=== PATIENT | female | born 1995 | race African-American/Black ===

== ENCOUNTER 2019-01-19 09:24 | Emergency (ER) | payer MEDICAID ==
[~2019-01-19] VITALS: Ht 170.2 cm; Wt 59.0 kg
--- NOTE | 2019-01-19 09:30 | NUR ---
ED Nurse Note: Patient brought in by ambulance from streets. per ems, patient was running around the street and stating that "someone wants to kill her." patient is alert awake to her name, with delusional thoughts that some one is trying to kill her. patient is not cooperative, not compliant.
[2019-01-19] MEDS ORDERED: UNOBMED (09:31)
--- NOTE | 2019-01-19 09:43 | Emergency Room Report ---
History of Present Illness General Chief Complaint: Behavioral Complaint Source: Patient, EMS, [employer] Enforcement (Ishan Carreno MD) Present Illness HPI Patient brought in by [employer] and EMS for psychotic behavior. She's paranoid. She was picked up an intersection running between traffic. She will not answer whether she's been doing drugs at this time. She will not answer if pain, nausea, headache. Unknown LNMP. (Ishan Carreno MD) Allergies: Coded Allergies: No Known Allergies (Unverified , 01/19/19) Patient History Limited by: medical condition Past Medical History: see triage record Social History: Reports: drug use Social History Narrative from [place] : 2 Reviewed Nursing Documentation: PMH: Agreed; PSxH: Agreed (Ishan Carreno MD) Nursing Documentation-PMH Past Medical History: No Stated History (Ishan Carreno MD) Review of Systems All Other Systems: limited (Ishan Carreno MD) Physical Exam Vital Signs Date Time Temp Pulse Resp B/P (MAP) Pulse Ox O2 Delivery O2 Flow Rate FiO2 01/19/19 09:22 97.3 97 18 119/75 98 Room Air Sp02 EP Interpretation: reviewed, normal General Appearance: moderate distress Head: normocephalic, atraumatic Eyes: bilateral eye PERRL, bilateral eye EOMI, bilateral eye Scleral Injection ENT: dry mucus membranes Neck: supple Respiratory: lungs clear, normal breath sounds Cardiovascular #1: regular rate, rhythm Cardiovascular #2: 2+ radial (R) Gastrointestinal: normal inspection, non tender, no mass, non-distended, decreased bowel sounds Genitourinary: no CVA tenderness Musculoskeletal: back normal, normal range of motion, no calf tenderness Neurologic: alert, motor strength/tone normal, DTRs symmetric, sensory intact Psychiatric: anxious, other - paranoid, agitated Skin: normal inspection, warm/dry (Ishan Carreno MD) Medical Decision Making Medical: Substance Abuse Behavioral: Anxiety, Other Reaction to Intervention: No change Restraint Reassesment I, Ishan Carreno MD, have personally evaluated this patient. Laboratory tests have been reviewed and addressed accordingly. The patient is deemed to present a danger to themselves and/or others. This is based on the exam, history ( provided by patient, EMS/[employer]) and observed or reported behavior. Attempts for non-invasive measures have been considered and/or attempted, however, have been futile. It is in the best interest of the nursing staff, the patient, and others involved in this patient's care that behavioral restraints be applied. Patient evaluation reveals the following: paranoid and agitated not responding to calming attempts or de-escalation attempts. (Ishan Carreno MD) Diagnostic Impression: Primary Impression: Substance abuse Additional Impressions: Psychosis Qualified Codes: F29 - Unspecified psychosis not due to a substance or known physiological condition Transient hypertension Rhabdomyolysis Qualified Codes: M62.82 - Rhabdomyolysis ER Course Patient presents with agitation and psychosis. Differential includes drug abuse , electrolyte imbalance, exacerbation of schizoaffective and anxiety amongst others. Evaluation will be with EKG, labs including tests and drug screen. Sedation is been ordered as well as a hard restraints. Transient decrease in O2 sat - decreased responsiveness. NS bolus given. BP better. Sedated and restraints coming off. Labs with leukocytosis, elevated CK. + cocaine and amphetamine Still delusional and paranoid. Continued observation. Will repeat labs. Sign out to Dr. Rivera. Laboratory Tests Test 01/19/19 10:40 White Blood Count 17.9 K/UL (4.8-10.8) H Red Blood Count 3.85 M/UL (4.20-5.40) L Hemoglobin 12.4 G/DL (12.0-16.0) Hematocrit 36.7 % (37.0-47.0) L Mean Corpuscular Volume 95 FL (80-99) Mean Corpuscular Hemoglobin 32.1 PG (27.0-31.0) H Mean Corpuscular Hemoglobin Concent 33.7 G/DL (32.0-36.0) Red Cell Distribution Width 11.1 % (11.6-14.8) L Platelet Count 305 K/UL (150-450) Mean Platelet Volume 6.8 FL (6.5-10.1) Neutrophils (%) (Auto) % (45.0-75.0) Lymphocytes (%) (Auto) % (20.0-45.0) Monocytes (%) (Auto) % (1.0-10.0) Eosinophils (%) (Auto) % (0.0-3.0) Basophils (%) (Auto) % (0.0-2.0) Differential Total Cells Counted 100 Neutrophils % (Manual) 87 % (45-75) H Lymphocytes % (Manual) 6 % (20-45) L Monocytes % (Manual) 4 % (1-10) Eosinophils % (Manual) 0 % (0-3) Basophils % (Manual) 0 % (0-2) Band Neutrophils 3 % (0-8) Platelet Estimate Adequate Platelet Morphology Normal Red Blood Cell Morphology Normal Urine HCG, Qualitative Negative (NEGATIVE) Sodium Level 136 MMOL/L (136-145) Potassium Level 3.4 MMOL/L (3.5-5.1) L Chloride Level 100 MMOL/L (98-107) Carbon Dioxide Level 20 MMOL/L (21-32) L Anion Gap 17 mmol/L (5-15) H Blood Urea Nitrogen 14 mg/dL (7-18) Creatinine 1.3 MG/DL (0.55-1.30) Estimate Glomerular Filtration Rate > 60 mL/min (>60) Glucose Level 54 MG/DL (74-106) L Calcium Level 9.2 MG/DL (8.5-10.1) Total Bilirubin 1.1 MG/DL (0.2-1.0) H Direct Bilirubin 0.3 MG/DL (0.0-0.3) Aspartate Amino Transferase (AST) 37 U/L (15-37) Alanine Aminotransferase (ALT) 15 U/L (12-78) Alkaline Phosphatase 64 U/L (46-116) Total Creatine Kinase 1164 U/L (26-308) H Total Protein 8.5 G/DL (6.4-8.2) H Albumin 4.2 G/DL (3.4-5.0) Globulin 4.3 g/dL Albumin/Globulin Ratio 1.0 (1.0-2.7) Salicylates Level 2.0 ug/mL (2.8-20) L Urine Opiates Screen Negative (NEGATIVE) Acetaminophen Level < 2 MCG/ML (10-30) L Urine Barbiturates Screen Negative (NEGATIVE) Phencyclidine (PCP) Screen Negative (NEGATIVE) Urine Amphetamines Screen Positive (NEGATIVE) H Urine Benzodiazepines Screen Negative (NEGATIVE) Urine Cocaine Screen Positive (NEGATIVE) H Urine Marijuana (THC) Screen Positive (NEGATIVE) H Serum Alcohol < 3 mg/dL (Ishan Carreno MD) ER Course Please refer to the initial note for the history exam and presentation I was following on the patient's repeat blood work Patient's total CK appears to be worsening Patient is concerning for developing rhabdomyolysis Further hydration is initiated and patient requires further inpatient care Please note that the patient at the time of admission now refusing admission Patient's significant other is also here reports that the patient does not want to stay in the hospital I discussed with him the findings and worsening rhabdomyolysis The concern for worsening kidney function and renal failure Patient has full decision-making capacity Patient's partner here also agreeable with the patient And they have signed AGAINST MEDICAL ADVICE Labs Test 01/19/19 10:40 01/19/19 16:00 White Blood Count 17.9 K/UL (4.8-10.8) 16.4 K/UL (4.8-10.8) Red Blood Count 3.85 M/UL (4.20-5.40) 3.62 M/UL (4.20-5.40) Hemoglobin 12.4 G/DL (12.0-16.0) 11.8 G/DL (12.0-16.0) Hematocrit 36.7 % (37.0-47.0) 34.5 % (37.0-47.0) Mean Corpuscular Volume 95 FL (80-99) 95 FL (80-99) Mean Corpuscular Hemoglobin 32.1 PG (27.0-31.0) 32.7 PG (27.0-31.0) Mean Corpuscular Hemoglobin Concent 33.7 G/DL (32.0-36.0) 34.2 G/DL (32.0-36.0) Red Cell Distribution Width 11.1 % (11.6-14.8) 11.2 % (11.6-14.8) Platelet Count 305 K/UL (150-450) 233 K/UL (150-450) Mean Platelet Volume 6.8 FL (6.5-10.1) 6.2 FL (6.5-10.1) Neutrophils (%) (Auto) % (45.0-75.0) 75.6 % (45.0-75.0) Lymphocytes (%) (Auto) % (20.0-45.0) 13.3 % (20.0-45.0) Monocytes (%) (Auto) % (1.0-10.0) 10.3 % (1.0-10.0) Eosinophils (%) (Auto) % (0.0-3.0) 0.1 % (0.0-3.0) Basophils (%) (Auto) % (0.0-2.0) 0.7 % (0.0-2.0) Differential Total Cells Counted 100 Neutrophils % (Manual) 87 % (45-75) Lymphocytes % (Manual) 6 % (20-45) Monocytes % (Manual) 4 % (1-10) Eosinophils % (Manual) 0 % (0-3) Basophils % (Manual) 0 % (0-2) Band Neutrophils 3 % (0-8) Platelet Estimate Adequate Platelet Morphology Normal Red Blood Cell Morphology Normal Urine HCG, Qualitative Negative (NEGATIVE) Sodium Level 136 MMOL/L (136-145) 139 MMOL/L (136-145) Potassium Level 3.4 MMOL/L (3.5-5.1) 4.3 MMOL/L (3.5-5.1) Chloride Level 100 MMOL/L (98-107) 104 MMOL/L (98-107) Carbon Dioxide Level 20 MMOL/L (21-32) 17 MMOL/L (21-32) Anion Gap 17 mmol/L (5-15) 18 mmol/L (5-15) Blood Urea Nitrogen 14 mg/dL (7-18) 12 mg/dL (7-18) Creatinine 1.3 MG/DL (0.55-1.30) 1.0 MG/DL (0.55-1.30) Estimat Glomerular Filtration Rate > 60 mL/min (>60) > 60 mL/min (>60) Glucose Level 54 MG/DL (74-106) 57 MG/DL (74-106) Calcium Level 9.2 MG/DL (8.5-10.1) 8.6 MG/DL (8.5-10.1) Total Bilirubin 1.1 MG/DL (0.2-1.0) 1.1 MG/DL (0.2-1.0) Direct Bilirubin 0.3 MG/DL (0.0-0.3) 1.1 MG/DL (0.0-0.3) Aspartate Amino Transf (AST/SGOT) 37 U/L (15-37) 72 U/L (15-37) Alanine Aminotransferase (ALT/SGPT) 15 U/L (12-78) 18 U/L (12-78) Alkaline Phosphatase 64 U/L (46-116) 57 U/L (46-116) Total Creatine Kinase 1164 U/L (26-308) 2867 U/L (26-308) Total Protein 8.5 G/DL (6.4-8.2) 7.5 G/DL (6.4-8.2) Albumin 4.2 G/DL (3.4-5.0) 3.5 G/DL (3.4-5.0) Globulin 4.3 g/dL 4.0 g/dL Albumin/Globulin Ratio 1.0 (1.0-2.7) 0.9 (1.0-2.7) Salicylates Level 2.0 ug/mL (2.8-20) Urine Opiates Screen Negative (NEGATIVE) Acetaminophen Level < 2 MCG/ML (10-30) Urine Barbiturates Screen Negative (NEGATIVE) Phencyclidine (PCP) Screen Negative (NEGATIVE) Urine Amphetamines Screen Positive (NEGATIVE) Urine Benzodiazepines Screen Negative (NEGATIVE) Urine Cocaine Screen Positive (NEGATIVE) Urine Marijuana (THC) Screen Positive (NEGATIVE) Serum Alcohol < 3 mg/dL (Nick Rivera DO) EKG Diagnostic Results Rate: normal Rhythm: NSR ST Segments: no acute changes (Ishan Carreno MD) Rhythm Strip Diag. Results EP Interpretation: yes Rhythm: NSR, no PVC's, no ectopy (Ishan Carreno MD) EP Interpretation: yes Rate: 80 Rhythm: NSR, no PVC's, no ectopy (Nick Rivera DO) Last Vital Signs Date Time Temp Pulse Resp B/P (MAP) Pulse Ox O2 Delivery O2 Flow Rate FiO2 01/19/19 18:12 98.0 110 22 115/90 97 Room Air 100 Status: improved (Ishan Carreno MD) Status: improved (Nick Rivera DO) Disposition: AGAINST MEDICAL ADVICE Condition: Serious Ishan Carreno MD Jan 19, 2019 09:43 Nick Rivera DO Jan 19, 2019 17:43
[2019-01-19] MEDS ORDERED: Haloperidol 5mg/ml Inj IM ONE (09:45)
[2019-01-19] MEDS ORDERED: DiphenhydrAMINE 50mg/ml Inj IM ONE (09:45)
[2019-01-19] MEDS ORDERED: LORazepam Inj 2mg/ml 1ml IM ONE (09:45)
[2019-01-19 10:58] VITALS: BP 89/42
[2019-01-19 11:01] VITALS: BP 89/42
[2019-01-19 11:04] LABS: HEMATOCRIT 36.7 % (37.0-47.0); HEMOGLOBIN 12.4 G/DL (12.0-16.0); MEAN CORPUSCULAR VOLUME 95 FL (80-99); PLATELET COUNT 305 K/UL (150-450); RED BLOOD COUNT 3.85 M/UL (4.20-5.40); RED CELL DISTRIBUTION WIDTH 11.1 % (11.6-14.8); WHITE BLOOD COUNT 17.9 K/UL (4.8-10.8)
--- NOTE | 2019-01-19 11:13 | NUR ---
ED Nurse Note: Notified ERMD of urine being positive for amphetamine, cocaine, and thc. Will continue to monitor.
[2019-01-19 11:16] LABS: ANION GAP 17 mmol/L (5-15); BLOOD UREA NITROGEN 14 mg/dL (7-18); CALCIUM 9.2 MG/DL (8.5-10.1); CARBON DIOXIDE 20 MMOL/L (21-32); CHLORIDE 100 MMOL/L (98-107); CREATININE 1.3 MG/DL (0.55-1.30); POTASSIUM 3.4 MMOL/L (3.5-5.1); SODIUM 136 MMOL/L (136-145)
[2019-01-19 11:29] LABS: ALANINE AMINOTRANSFERASE 15 U/L (12-78); ALBUMIN 4.2 G/DL (3.4-5.0); ALKALINE PHOSPHATASE 64 U/L (46-116); ASPARTATE AMINO TRANSFERASE 37 U/L (15-37); BILIRUBIN,TOTAL 1.1 MG/DL (0.2-1.0); CREATINE KINASE 1164 U/L (26-308)
[2019-01-19 11:33] LABS: BILIRUBIN,DIRECT 0.3 MG/DL (0.0-0.3)
[2019-01-19 13:11] VITALS: BP 119/62
[2019-01-19 15:33] VITALS: BP 116/49
[2019-01-19 16:32] LABS: ANION GAP 18 mmol/L (5-15); BLOOD UREA NITROGEN 12 mg/dL (7-18); CALCIUM 8.6 MG/DL (8.5-10.1); CARBON DIOXIDE 17 MMOL/L (21-32); CHLORIDE 104 MMOL/L (98-107); POTASSIUM 4.3 MMOL/L (3.5-5.1); SODIUM 139 MMOL/L (136-145)
[2019-01-19 16:46] LABS: ALANINE AMINOTRANSFERASE 18 U/L (12-78); ALBUMIN 3.5 G/DL (3.4-5.0); ALBUMIN/GLOBULIN RATIO 0.9 (1.0-2.7); ALKALINE PHOSPHATASE 57 U/L (46-116); ASPARTATE AMINO TRANSFERASE 72 U/L (15-37); BASOPHILS % (AUTO) 0.7 % (0.0-2.0); BILIRUBIN,TOTAL 1.1 MG/DL (0.2-1.0); CREATINE KINASE 2867 U/L (26-308); EOSINOPHILS % (AUTO) 0.1 % (0.0-3.0); HEMATOCRIT 34.5 % (37.0-47.0); HEMOGLOBIN 11.8 G/DL (12.0-16.0); LYMPHOCYTES % (AUTO) 13.3 % (20.0-45.0); MEAN CORPUSCULAR VOLUME 95 FL (80-99); MONOCYTES % (AUTO) 10.3 % (1.0-10.0); NEUTROPHILS % (AUTO) 75.6 % (45.0-75.0); PLATELET COUNT 233 K/UL (150-450); RED BLOOD COUNT 3.62 M/UL (4.20-5.40); RED CELL DISTRIBUTION WIDTH 11.2 % (11.6-14.8); WHITE BLOOD COUNT 16.4 K/UL (4.8-10.8)
[2019-01-19 16:51] LABS: BILIRUBIN,DIRECT 1.1 MG/DL (0.0-0.3)
[2019-01-19 17:32] VITALS: BP 117/95
--- NOTE | 2019-01-19 18:10 | NUR ---
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 Pt and ERMD signed AMA paperwork. Pt is A + O x4. Able to make decisions for herself. Clear speech. Pt given weather appropriate clothing. Pt given copy of signed AMA paperwork.
[2019-01-19 18:12] VITALS: BP 115/90
--- NOTE | 2019-01-19 18:16 | NUR ---
ED Nurse Note: Pt left ER w/ all her belongings. No acute distress noted.
--- NOTE | 2019-01-21 19:14 | Cardiology Report ---
APPROVED REPORT EKG Measurement Heart [id number] Normal sinus rhythm with sinus arrhythmia Normal ECG
== END 2019-01-19 18:17 | disposition left against medical advice (07) ==
LOC: EDBD 09:24 → EMR 09:50
DX: F29 Unspecified psychosis not due to a substance or known physiological condition (principal); M62.82 Rhabdomyolysis; R03.0 Elevated blood-pressure reading, without diagnosis of hypertension; F15.10 Other stimulant abuse, uncomplicated; F14.10 Cocaine abuse, uncomplicated
CPT/HCPCS: 36415; 80053; 80307; 80329; 81025; 82248; 82550; 85007; 85025; 93005; 96360; 96361; 96372; 99284; J1200; J1630